=== PATIENT | female | born 1995 | race Caucasian/White ===

== ENCOUNTER 2018-11-16 23:25 | Emergency (ER) | payer OTHER ==
[2018-11-16] MEDS ORDERED: Meclizine HCl 25 MG TAB ONE (23:49)
== END 2018-11-17 00:11 | disposition home or self-care (01) ==
LOC: SCSER 23:25
DX: R51 Headache (principal); R11.0 Nausea; F90.9 Attention-deficit hyperactivity disorder, unspecified type; Z79.899 Other long term (current) drug therapy
CPT/HCPCS: 99283; J8597